=== PATIENT | female | born 1950 | race Caucasian/White ===

== ENCOUNTER 2018-05-17 08:30 | Observation (INO) | payer MEDICARE, BC ==
[~2018-05-17] VITALS: Ht 154.9 cm; Wt 53.2 kg
--- NOTE | 2018-05-17 09:29 | NUR ---
PT. IS A & O X 4 WITH C/O CHEST PAIN AND A STRONG COUGH. CRACKLES NOTED IN THE BASES. PT. HAS HAD AN AZ IN THE LAST 3 WEEKS. PT.'S 12 LEAD EKG WAS DONE. IV ACCESS ESTABLISHED WITH LABS DRAWN AND SENT. PT.'S PCXR IS DONE. PT. HAS THE CP MONITOR IN PLACE. PT.'S HOB IS ELEVATED GREATER THAN 30 DEGREES. PT. HAS THE CALL LIGHT IN PLACE AND THE SIDERAILS ARE UP X 2. PT. REMAINS PINK,WARM AND DRY WITH BRISK CAP REFILL, LESS THAN 3 SECONDS. PT. HAS NO C/O SOB OR NAUSEA. RESP ARE EUPNEIC WITH SATS 96% ON RA.
[2018-05-17] MEDS ORDERED: ASPIRIN 81 MG TABLET CHEW PO ONE (09:30)
[2018-05-17] MEDS ORDERED: SODIUM CHLORIDE FLUSH 10ML SYR IVF ONE (09:30)
[2018-05-17] MEDS ORDERED: ASPIRIN 81 MG TABLET CHEW ONE (09:34)
[2018-05-17] MEDS ORDERED: LISI2.5T PO (09:40)
[2018-05-17] MEDS ORDERED: TICA90TA PO (09:40)
[2018-05-17] MEDS ORDERED: ASPI-496 PO (09:40)
[2018-05-17] MEDS ORDERED: ATOR40TA78 PO (09:40)
[2018-05-17] MEDS ORDERED: CARV3.1212 PO (09:40)
[2018-05-17 09:42] LABS: BASOPHILS # (AUTO) 0.02 x10^3/uL (0-0.1); BASOPHILS % (AUTO) 0 % (0-1); EOSINOPHILS # (AUTO) 0.08 x10^3/uL (0-0.4); EOSINOPHILS % (AUTO) 1 % (1-7); LYMPHOCYTES # (AUTO) 1.32 x10^3/uL (1-3.4); LYMPHOCYTES % (AUTO) 22 % (22-44); MD NO; MEAN CORPUSCULAR HEMOGLOBIN 30.7 pg (27.0-34.8); MEAN CORPUSCULAR HGB CONC 33.8 g/dL (32.4-35.8); MEAN CORPUSCULAR VOLUME 90.9 fL (80-100); MEAN PLATELET VOLUME 7.5 fL (7.4-10.4); MONOCYTES # (AUTO) 0.73 x10^3/uL (0.2-0.8); MONOCYTES % (AUTO) 12 % (2-9); NEUTROPHILS # (AUTO) 3.85 x10^3/uL (1.8-6.8); NEUTROPHILS % (AUTO) 64 % (42-75); PLATELET COUNT 393 x10^3/uL (130-400); RED BLOOD COUNT 5.03 x10^6/uL (3.82-5.3); RED CELL DISTRIBUTION WIDTH 12.2 % (9.6-15.2)
[2018-05-17 09:46] LABS: INTERNATIONAL NORMALIZED RATIO 0.98 (0.93-1.1); PROTHROMBIN TIME 10.3 Seconds (9.6-11.5)
[2018-05-17 09:49] LABS: ALBUMIN 3.8 g/dL (3.4-5.0); ANION GAP 6 mmol/L (5-15); CALCIUM 9.3 mg/dL (8.5-10.1); CHLORIDE 111 mmol/L (98-107); CREATININE 0.71 mg/dL (0.55-1.02)
[2018-05-17 09:52] LABS: TROPONIN I < 0.015 ng/mL (0.000-0.045)
--- NOTE | 2018-05-17 09:53 | NUR ---
PT REPORT FROM MYLES PAREKH. PT CARE TO BE ASSUMED.
[2018-05-17] MEDS ORDERED: SODIUM CHLORIDE 0.9% 1,000 ML IV SCH (11:54)
[2018-05-17] MEDS ORDERED: NITROGLYCERIN 0.4 MG BOTTLE (25 TABS) SL PRN (12:00)
[2018-05-17] MEDS ORDERED: BISACODYL 10 MG SUPP PR PRN (12:00)
[2018-05-17] MEDS ORDERED: ACETAMINOPHEN 325 MG TABLET PO PRN (12:00)
[2018-05-17] MEDS ORDERED: DOCUSATE 100 MG CAPSULE PO PRN (12:00)
[2018-05-17] MEDS ORDERED: ENALAPRILAT 1.25 MG/ML, 2ML IVPush PRN (12:00)
[2018-05-17] MEDS ORDERED: GUAIFENESIN/DM 200-20MG, 10ML UDC PO PRN (12:00)
[2018-05-17] MEDS ORDERED: LIDODERM 5% PATCH TD PRN (12:00)
[2018-05-17] MEDS ORDERED: ONDANSETRON 2MG/ML, 2ML IVPush PRN (12:00)
[2018-05-17] MEDS ORDERED: POLYETHYLENE GLYCOL 17 GM PACKET PO PRN (12:00)
[2018-05-17] MEDS ORDERED: ONDANSETRON ODT 4 MG PO PRN (12:00)
--- NOTE | 2018-05-17 12:17 | NUR ---
PT REPORT TO MYLES NOLASCO FOR ROOM [id number]
[2018-05-17 13:05] LABS: TROPONIN I < 0.015 ng/mL (0.000-0.045)
[2018-05-17 13:11] VITALS: BP 102/63
[2018-05-17 13:27] VITALS: BP 102/63
[2018-05-17] MEDS: FAMOTIDINE 20 MG TABLET PO SCH ×2 (15:34→21:54)
[2018-05-17] MEDS: TICAGRELOR 90 MG TABLET PO SCH ×2 (15:34→21:54)
[2018-05-17 16:01] LABS: TROPONIN I < 0.015 ng/mL (0.000-0.045)
[2018-05-17 16:14] LABS: MICROSCOPIC AUTO
[2018-05-17 16:15] LABS: CULTURE INDICATED? YES
[2018-05-17 19:06] VITALS: BP 101/65
[2018-05-17] MEDS ORDERED: ATORVASTATIN 40 MG TABLET PO SCH (21:00)
[2018-05-18 00:33] VITALS: BP 128/65
[2018-05-18] MEDS ORDERED: ASPIRIN 81 MG TABLET EC PO SCH (06:00)
[2018-05-18 06:24] LABS: BASOPHILS # (AUTO) 0.02 x10^3/uL (0-0.1); BASOPHILS % (AUTO) 0 % (0-1); EOSINOPHILS # (AUTO) 0.07 x10^3/uL (0-0.4); EOSINOPHILS % (AUTO) 1 % (1-7); LYMPHOCYTES # (AUTO) 1.01 x10^3/uL (1-3.4); LYMPHOCYTES % (AUTO) 20 % (22-44); MD NO; MEAN CORPUSCULAR HEMOGLOBIN 31.2 pg (27.0-34.8); MEAN CORPUSCULAR HGB CONC 34.6 g/dL (32.4-35.8); MEAN CORPUSCULAR VOLUME 90.1 fL (80-100); MEAN PLATELET VOLUME 7.3 fL (7.4-10.4); MONOCYTES # (AUTO) 0.65 x10^3/uL (0.2-0.8); MONOCYTES % (AUTO) 13 % (2-9); NEUTROPHILS # (AUTO) 3.33 x10^3/uL (1.8-6.8); NEUTROPHILS % (AUTO) 66 % (42-75); PLATELET COUNT 323 x10^3/uL (130-400); RED BLOOD COUNT 4.68 x10^6/uL (3.82-5.3); RED CELL DISTRIBUTION WIDTH 12.7 % (9.6-15.2)
[2018-05-18 06:36] LABS: ANION GAP 4 mmol/L (5-15); CALCIUM 8.8 mg/dL (8.5-10.1); CHLORIDE 116 mmol/L (98-107); CREATININE 0.73 mg/dL (0.55-1.02)
[2018-05-18 07:14] VITALS: BP 119/64
[2018-05-18] MEDS: FAMOTIDINE 20 MG TABLET PO SCH (09:04)
[2018-05-18] MEDS: TICAGRELOR 90 MG TABLET PO SCH (09:04)
[2018-05-18] MEDS ORDERED: REGADENOSON 0.4 MG/5 ML SYRINGE ONE (10:03)
[2018-05-18 13:49] VITALS: BP 103/64
[2018-05-18] MEDS ORDERED: ONDA4TAB13 PO (14:11)
== END 2018-05-18 16:25 | disposition home or self-care (01) ==
LOC: ED 09:38 → INTOOBSV 10:51 → EDIP 10:51 → 5SO 13:03 → DCLOUNGE 05-18 16:16
PROVIDERS: ADMIT Internal Medicine; ATTEND Internal Medicine
DX: R07.89 Other chest pain (principal); R42 Dizziness and giddiness; R11.2 Nausea with vomiting, unspecified; E86.0 Dehydration; H91.91 Unspecified hearing loss, right ear; I10 Essential (primary) hypertension; I25.10 Atherosclerotic heart disease of native coronary artery without angina pectoris; I25.2 Old myocardial infarction; Z87.891 Personal history of nicotine dependence; Z95.5 Presence of coronary angioplasty implant and graft; Z79.899 Other long term (current) drug therapy
CPT/HCPCS: 36415; 71045; 78452; 80048; 81001; 82040; 83605; 83735; 83880; 84145; 84443; 84484; 85025; 85610; 87040; 87086; 93005; 93017; 93306; 96361; 96374; 99284; A9502; C9898; G0378; J2405; J2785; J7030

== ENCOUNTER 2020-02-11 23:39 | Emergency (ER) | payer BC, MEDICARE ==
[~2020-02-11] VITALS: Ht 154.9 cm; Wt 65.0 kg
[~2020-02-11 23:39] MED LIST: ASPI-496 PO; ATOR40TA78 PO; CARV3.1212 PO; LISI2.5T PO; ONDA4TAB13 PO; TICA90TA PO
--- NOTE | 2020-02-11 23:54 | NUR ---
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
--- NOTE | 2020-02-12 00:10 | NUR ---
ASSUMED CARE OF PT AT THIS TIME FROM [facility]. SPOUSE AT BEDSIDE. DR. KEARNS AT BEDSIDE FOR EVALUATION. 70 Y/O F PRESENT STATING "SINCE ABOUT 9:15PM LAST NIGHT MY LEFT ARM RIGHT HERE (POINTS TO BICEP) HAS BEEN HURTING AND BURNING PAIN, PAIN GOES UP TO SHOULDER SOMETIMES AND DOWN TO FINGERS, FEELS HEAVY, I ALWAYS FEEL LIKE I HAVE A HARD TIME TAKING DEEP BREATHS BUT I DON'T FEEL SHORT OF BREATH." PT TENDER TO PALP ALONG SHOULDER AND UPPER ARM, PAIN REPRODUCABLE TO PALP. DENIES CP, NUMBNESS, TINGLING, DIZZINESS, TA, ANY N/V/D AND ANY INJURY OR TRAUMA TO ARM. PT SPEECH CLEAR, NEURO AND CMS INTACT. SLIGHT LUE WEAKNESS DUE TO PAIN PER PT. RUE, RLE, LLE, EQUAL AND STRONG. CONT PULSE OX, BP, CARDIAC MONITORS IN PLACE. SR ON MONITOR. VSS. CALL LIGHT IN REACH. FALL PRECAUTIONS IN PLACE. A&OX4.
--- NOTE | 2020-02-12 00:29 | NUR ---
IV PLACED, LABS DRAWN. TO MEDICATE PT PER MD ORDER FOR 6/10 LEFT ARM PAIN. SPOUSE AT BEDSIDE. CALL LIGHT IN REACH. FALL PRECAUTIONS IN PLACE. VSS. SR ON MONITOR.
[2020-02-12] MEDS ORDERED: ACETAMINOPHEN 500 MG TABLET PO ONE (00:30)
[2020-02-12] MEDS ORDERED: SODIUM CHLORIDE FLUSH 10ML SYR IVF ONE (00:30)
[2020-02-12] MEDS ORDERED: ASPIRIN 81 MG TABLET CHEW PO ONE (00:30)
[2020-02-12] MEDS ORDERED: ACETAMINOPHEN 325 MG TABLET ONE (00:33)
[2020-02-12] MEDS ORDERED: ASPIRIN 81 MG TABLET CHEW ONE (00:34)
[2020-02-12 00:47] LABS: BASOPHILS % (AUTO) 0 % (0-1); EOSINOPHILS % (AUTO) 3 % (1-7); LYMPHOCYTES % (AUTO) 31 % (22-44); MEAN CORPUSCULAR HEMOGLOBIN 30.4 pg (27.0-34.8); MEAN CORPUSCULAR HGB CONC 34.3 g/dL (32.4-35.8); MEAN PLATELET VOLUME 7.6 fL (7.4-10.4); MONOCYTES % (AUTO) 13 % (2-9); NEUTROPHILS % (AUTO) 54 % (42-75); PLATELET COUNT 264 x10^3/uL (130-400); RED CELL DISTRIBUTION WIDTH 12.8 % (9.6-15.2)
[2020-02-12 00:48] LABS: MD NO
[2020-02-12] MEDS ORDERED: CHOL10003 PO (00:52)
--- NOTE | 2020-02-12 00:52 | NUR ---
RAD AT BEDSIDE
[2020-02-12 00:56] LABS: ALBUMIN 3.6 g/dL (3.4-5.0); ANION GAP 7 mmol/L (5-15); CALCIUM 8.8 mg/dL (8.5-10.1); CHLORIDE 111 mmol/L (98-107)
[2020-02-12 01:02] LABS: ALANINE AMINOTRANSFERASE 34 U/L (12-78); ALKALINE PHOSPHATASE 127 U/L (45-117); BILIRUBIN,TOTAL 0.4 mg/dL (0.2-1.0); CREATININE 0.78 mg/dL (0.55-1.02); TOTAL PROTEIN 7.5 g/dL (6.4-8.2); TROPONIN I < 0.015 ng/mL (0.000-0.045)
--- NOTE | 2020-02-12 01:13 | NUR ---
BEDSIDE REPORT AND TRANSFER OF CARE TO TONG BUENO AT THIS TIME.
[2020-02-12 01:15] VITALS: BP 138/88
--- NOTE | 2020-02-12 01:20 | NUR ---
received pt report. pt cooperative in bed, no distress. piv to right arm intact and flushes well.
--- NOTE | 2020-02-12 02:01 | NUR ---
d/c instructions given to pt and . piv to right arm removed. catheter intact, and pt tolerated well. bandage placed.
== END 2020-02-12 02:05 | disposition home or self-care (01) ==
LOC: ED 02-12 01:17
DX: M25.512 Pain in left shoulder (principal); M79.622 Pain in left upper arm; R06.02 Shortness of breath; R42 Dizziness and giddiness; I10 Essential (primary) hypertension
CPT/HCPCS: 36415; 71045; 80053; 84484; 85025; 93005; 99285

== ENCOUNTER 2020-03-26 14:18 | Inpatient (IN) | payer BC ==
[~2020-03-26] VITALS: Ht 154.9 cm; Wt 68.0 kg
[~2020-03-26 14:18] MED LIST changes: +CHOL10003 PO
--- NOTE | 2020-03-26 14:20 | NUR ---
Pt changed into gown and placed on bedside monitor. 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
--- NOTE | 2020-03-26 15:01 | NUR ---
Pt still awaiting MD assessment. Report given to MYLES Shah and care transferred.
--- NOTE | 2020-03-26 15:09 | NUR ---
Report from MYLES Guadalupe. [facility].
[2020-03-26] MEDS ORDERED: ONDANSETRON 2MG/ML, 2ML ONE (15:47)
[2020-03-26] MEDS ORDERED: SODIUM CHLORIDE 0.9% 1,000ML IVBOLUS ONE (16:00)
[2020-03-26] MEDS ORDERED: SODIUM CHLORIDE FLUSH 10ML SYR IVF ONE (16:00)
[2020-03-26] MEDS ORDERED: ONDANSETRON 2MG/ML, 2ML IVPush ONE (16:00)
[2020-03-26 16:02] LABS: BASOPHILS % (AUTO) 0 % (0-1); EOSINOPHILS % (AUTO) 0 % (1-7); LYMPHOCYTES % (AUTO) 8 % (22-44); MEAN CORPUSCULAR HEMOGLOBIN 30.7 pg (27.0-34.8); MEAN CORPUSCULAR HGB CONC 34.3 g/dL (32.4-35.8); MEAN PLATELET VOLUME 7.6 fL (7.4-10.4); MONOCYTES % (AUTO) 5 % (2-9); NEUTROPHILS % (AUTO) 87 % (42-75); PLATELET COUNT 244 x10^3/uL (130-400); RED BLOOD COUNT 4.78 x10^6/uL (3.82-5.3)
[2020-03-26 16:06] LABS: MD NO
--- NOTE | 2020-03-26 16:07 | NUR ---
Pt up to bedside commode.
[2020-03-26 16:13] LABS: ALANINE AMINOTRANSFERASE 38 U/L (12-78); ALBUMIN 3.5 g/dL (3.4-5.0); ANION GAP 5 mmol/L (5-15); CHLORIDE 109 mmol/L (98-107); CREATININE 0.84 mg/dL (0.55-1.02)
[2020-03-26 16:18] LABS: ALKALINE PHOSPHATASE 100 U/L (45-117); BILIRUBIN,TOTAL 0.3 mg/dL (0.2-1.0); TOTAL PROTEIN 7.7 g/dL (6.4-8.2); TROPONIN I < 0.015 ng/mL (0.000-0.045)
--- NOTE | 2020-03-26 16:20 | NUR ---
20 g IV started left AC.
--- NOTE | 2020-03-26 16:24 | NUR ---
RN at bedside. No working computer in room, unable to scan in zofran and NS. NS infusing, zofran given.
--- NOTE | 2020-03-26 16:44 | NUR ---
RN at bedside. NS infusing. Pt shaking, appears very anxious. This RN comforting pt and updating her on the plan.
[2020-03-26] MEDS ORDERED: IBUPROFEN 800 MG TABLET ONE (16:49)
[2020-03-26] MEDS ORDERED: IBUPROFEN 800 MG TABLET PO ONE (17:00)
--- NOTE | 2020-03-26 17:11 | NUR ---
Road tested pt.- 89% RA. Pt shaking, appears anxious, reports she is shaking because she feels cold. Pt reports feeling lightheaded walking around. Helped pt back into bed and provided warm blanket. Last temp was 98.2
--- NOTE | 2020-03-26 17:51 | NUR ---
RN at bedside. Updating pt on plan to admit pt. Pt sitting in bed, reports she feels less anxious now. Reports her pain is now 3/10 and "that ibuprofen really helped so much I feel so relaxed and comfortable now".
[2020-03-26] MEDS ORDERED: SODIUM CHLORIDE FLUSH 10ML SYR IVF PRN (18:30)
--- NOTE | 2020-03-26 18:44 | NUR ---
Provided pt water. Flushed IV with NS.
--- NOTE | 2020-03-26 18:46 | NUR ---
Ordered cardiac diet dinner tray for pt.
--- NOTE | 2020-03-26 19:11 | NUR ---
Delivered dinner tray to pt. Pt sitting up in bed, breathing nonlabored, relaxed.
[2020-03-26] MEDS ORDERED: DEXA1.5T28 PO (19:28)
--- NOTE | 2020-03-26 19:57 | NUR ---
Attempted to call report, no one received report.
--- NOTE | 2020-03-26 20:14 | NUR ---
Report called to room [id number]
[2020-03-26] MEDS ORDERED: POLYETHYLENE GLYCOL 17 GM PACKET PO PRN (20:30)
[2020-03-26] MEDS ORDERED: ONDANSETRON 2MG/ML, 2ML IVPush PRN (20:30)
[2020-03-26] MEDS ORDERED: PROMETHAZINE 25 MG/ML, 1ML IM PRN (20:30)
[2020-03-26] MEDS ORDERED: DOCUSATE 100 MG CAPSULE PO PRN (20:30)
[2020-03-26] MEDS ORDERED: hydrALAzine 20 MG/ML, 1ML IVPush PRN (20:30)
[2020-03-26] MEDS ORDERED: morphine SULFATE 10 MG/ML, 1ML IVPush PRN (20:30)
[2020-03-26] MEDS ORDERED: ONDANSETRON ODT 4 MG PO PRN (20:30)
[2020-03-26] MEDS ORDERED: BISACODYL 10 MG SUPP PR PRN (20:30)
[2020-03-26] MEDS: DEXAMETHASONE 4 MG/ML, 1ML IVPush SCH (21:53)
[2020-03-26] MEDS: ENOXAPARIN 40 MG/0.4 ML SQ SCH (21:53)
[2020-03-26] MEDS: SODIUM CHLORIDE 0.9% 1,000 ML IV SCH (21:54)
[2020-03-26] MEDS: ASCORBIC ACID 500 MG TABLET PO SCH (21:54)
[2020-03-26] MEDS: ATORVASTATIN 40 MG TABLET PO SCH (21:54)
[2020-03-26 22:27] VITALS: BP 115/74
[2020-03-27 01:23] VITALS: BP 118/70
[2020-03-27] MEDS: ACETAMINOPHEN 325 MG TABLET PO PRN ×2 (02:41→14:52)
[2020-03-27 07:05] LABS: BASOPHILS % (AUTO) 0 % (0-1); EOSINOPHILS % (AUTO) 0 % (1-7); LYMPHOCYTES % (AUTO) 9 % (22-44); MEAN CORPUSCULAR HEMOGLOBIN 30.7 pg (27.0-34.8); MEAN CORPUSCULAR HGB CONC 33.9 g/dL (32.4-35.8); MEAN PLATELET VOLUME 8.1 fL (7.4-10.4); MONOCYTES % (AUTO) 5 % (2-9); NEUTROPHILS % (AUTO) 86 % (42-75); PLATELET COUNT 209 x10^3/uL (130-400); RED CELL DISTRIBUTION WIDTH 13.2 % (9.6-15.2)
[2020-03-27 07:13] LABS: MD NO
[2020-03-27 07:17] LABS: ALBUMIN 2.8 g/dL (3.4-5.0); ANION GAP 5 mmol/L (5-15); CALCIUM 8.4 mg/dL (8.5-10.1); CHLORIDE 116 mmol/L (98-107)
[2020-03-27 07:28] LABS: ALANINE AMINOTRANSFERASE 29 U/L (12-78); ALKALINE PHOSPHATASE 84 U/L (45-117); BILIRUBIN,TOTAL 0.2 mg/dL (0.2-1.0); CHOL/HDL RATIO 2.7; CHOLESTEROL, TOTAL 123 mg/dL (140-239); CREATININE 0.67 mg/dL (0.55-1.02); HDL CHOL % 37 % (28-40); HDL CHOLESTEROL (DIRECT) 46 mg/dL (40-60); LDL CHOLESTEROL,CALCULATED 47 mg/dL (54-169); TOTAL PROTEIN 6.3 g/dL (6.4-8.2); TRIGLYCERIDES 149 mg/dL (50-200); VLDL CHOLESTEROL 30 mg/dL (0-25)
[2020-03-27 07:48] VITALS: BP 113/66
[2020-03-27] MEDS: CHOLECALCIFEROL 5,000u TAB PO SCH (08:16)
[2020-03-27] MEDS: ASCORBIC ACID 500 MG TABLET PO SCH ×2 (08:16→17:33)
[2020-03-27] MEDS: ASPIRIN 81 MG TABLET EC PO SCH (08:16)
[2020-03-27] MEDS: ZINC SULFATE 220 MG CAPSULE PO SCH (08:16)
[2020-03-27] MEDS: DEXAMETHASONE 4 MG/ML, 1ML IVPush SCH (08:16)
[2020-03-27] MEDS: SODIUM CHLORIDE 0.9% 1,000 ML IV SCH (08:17)
[2020-03-27] MEDS: ENOXAPARIN 40 MG/0.4 ML SQ SCH ×2 (08:17→20:47)
[2020-03-27] MEDS: OXYcodone IR 5MG TABLET PO PRN ×2 (08:28→23:13)
[2020-03-27 08:29] LABS: C-REACTIVE PROTEIN, QUANT 0.69 mg/dL (0.02-0.49)
[2020-03-27 08:32] LABS: TROPONIN I < 0.015 ng/mL (0.000-0.045)
[2020-03-27 12:35] VITALS: BP 111/71
[2020-03-27] MEDS: VALACYCLOVIR 500MG TABLET PO SCH (18:17)
[2020-03-27 19:18] VITALS: BP 115/65
[2020-03-27] MEDS: ATORVASTATIN 40 MG TABLET PO SCH (20:47)
[2020-03-27 23:26] VITALS: BP 125/70
[2020-03-28] VITALS (7 sets, daily range): BP systolic 102–137; BP diastolic 62–79
[2020-03-28] MEDS: VALACYCLOVIR 500MG TABLET PO SCH ×3 (02:22→18:48)
[2020-03-28] MEDS: ASPIRIN 81 MG TABLET EC PO SCH (09:14)
[2020-03-28] MEDS: CHOLECALCIFEROL 5,000u TAB PO SCH (09:15)
[2020-03-28] MEDS: DEXAMETHASONE 4 MG/ML, 1ML IVPush SCH (09:15)
[2020-03-28] MEDS: ASCORBIC ACID 500 MG TABLET PO SCH ×2 (09:15→17:46)
[2020-03-28] MEDS: ZINC SULFATE 220 MG CAPSULE PO SCH (09:15)
[2020-03-28] MEDS: ENOXAPARIN 40 MG/0.4 ML SQ SCH ×2 (09:15→20:18)
[2020-03-28] MEDS: OXYcodone IR 5MG TABLET PO PRN ×2 (09:25→23:49)
[2020-03-28] MEDS ORDERED: REMDESIVIR 200 MG in SODIUM CHLORIDE 0.9% 250 ML IVPB ONE (15:00)
[2020-03-28] MEDS: ATORVASTATIN 40 MG TABLET PO SCH (20:17)
[2020-03-29] VITALS: BP 163/77
[2020-03-29 00:29] VITALS: BP 151/72
[2020-03-29] MEDS ORDERED: NITROGLYCERIN 0.4 MG BOTTLE (25 TABS) SL ONE ×2 (00:30)
[2020-03-29] MEDS ORDERED: ASPIRIN 81 MG TABLET CHEW PO ONE (00:30)
[2020-03-29 00:50] LABS: TROPONIN I < 0.015 ng/mL (0.000-0.045)
[2020-03-29 00:55] VITALS: BP 117/57
[2020-03-29] MEDS: VALACYCLOVIR 500MG TABLET PO SCH ×3 (01:31→17:43)
[2020-03-29] MEDS: ACETAMINOPHEN 325 MG TABLET PO PRN (01:37)
[2020-03-29 06:30] LABS: BASOPHILS % (AUTO) 0 % (0-1); EOSINOPHILS % (AUTO) 0 % (1-7); LYMPHOCYTES % (AUTO) 7 % (22-44); MONOCYTES % (AUTO) 9 % (2-9); NEUTROPHILS % (AUTO) 84 % (42-75); PLATELET COUNT 214 x10^3/uL (130-400); RED BLOOD COUNT 4.36 x10^6/uL (3.82-5.3); RED CELL DISTRIBUTION WIDTH 13.1 % (9.6-15.2)
[2020-03-29 06:34] LABS: MD NO
[2020-03-29 06:36] LABS: ALBUMIN 2.6 g/dL (3.4-5.0); ANION GAP 5 mmol/L (5-15); CALCIUM 8.6 mg/dL (8.5-10.1); CHLORIDE 108 mmol/L (98-107)
[2020-03-29 06:43] LABS: ALANINE AMINOTRANSFERASE 34 U/L (12-78); ALKALINE PHOSPHATASE 77 U/L (45-117); BILIRUBIN,TOTAL 0.4 mg/dL (0.2-1.0); CREATININE 0.63 mg/dL (0.55-1.02); TOTAL PROTEIN 6.7 g/dL (6.4-8.2); TROPONIN I < 0.015 ng/mL (0.000-0.045)
[2020-03-29 07:32] VITALS: BP 137/78
[2020-03-29] MEDS: CHOLECALCIFEROL 5,000u TAB PO SCH (08:57)
[2020-03-29] MEDS: ASCORBIC ACID 500 MG TABLET PO SCH ×2 (08:57→17:43)
[2020-03-29] MEDS: ASPIRIN 81 MG TABLET EC PO SCH (08:57)
[2020-03-29] MEDS: ZINC SULFATE 220 MG CAPSULE PO SCH (08:57)
[2020-03-29] MEDS: DEXAMETHASONE 4 MG/ML, 1ML IVPush SCH (08:57)
[2020-03-29] MEDS: ENOXAPARIN 40 MG/0.4 ML SQ SCH ×2 (09:00→21:19)
[2020-03-29] MEDS ORDERED: OMNIPAQUE 350 MG/ML, 100ML BOTTLE ONE (09:24)
[2020-03-29] MEDS: OXYcodone IR 5MG TABLET PO PRN (09:39)
[2020-03-29 12:17] LABS: TROPONIN I < 0.015 ng/mL (0.000-0.045)
[2020-03-29] MEDS ORDERED: FUROSEMIDE 40 MG/4 ML IV ONE (12:30)
[2020-03-29 13:12] VITALS: BP 115/71
[2020-03-29] MEDS: REMDESIVIR 100 MG in SODIUM CHLORIDE 0.9% 250 ML IVPB SCH (15:44)
[2020-03-29 19:42] VITALS: BP 106/65
[2020-03-29] MEDS: ATORVASTATIN 40 MG TABLET PO SCH (21:19)
[2020-03-29] MEDS: GUAIFENESIN ER 600 MG TABLET PO SCH (21:19)
[2020-03-30 00:26] VITALS: BP 112/67
[2020-03-30] MEDS: VALACYCLOVIR 500MG TABLET PO SCH ×3 (02:06→17:16)
[2020-03-30 06:07] LABS: ALBUMIN 2.6 g/dL (3.4-5.0); ANION GAP 5 mmol/L (5-15); CALCIUM 9.1 mg/dL (8.5-10.1); CHLORIDE 107 mmol/L (98-107)
[2020-03-30 06:15] LABS: ALANINE AMINOTRANSFERASE 40 U/L (12-78); ALKALINE PHOSPHATASE 98 U/L (45-117); BILIRUBIN,TOTAL 0.3 mg/dL (0.2-1.0); CREATININE 0.63 mg/dL (0.55-1.02); TOTAL PROTEIN 6.8 g/dL (6.4-8.2)
[2020-03-30 07:12] VITALS: BP 122/69
[2020-03-30] MEDS: ASPIRIN 81 MG TABLET EC PO SCH (08:58)
[2020-03-30] MEDS: DEXAMETHASONE 4 MG/ML, 1ML IVPush SCH (08:58)
[2020-03-30] MEDS: GUAIFENESIN ER 600 MG TABLET PO SCH ×2 (08:58→21:51)
[2020-03-30] MEDS: CHOLECALCIFEROL 5,000u TAB PO SCH (08:59)
[2020-03-30] MEDS: ASCORBIC ACID 500 MG TABLET PO SCH ×2 (08:59→17:16)
[2020-03-30] MEDS: ENOXAPARIN 40 MG/0.4 ML SQ SCH ×2 (09:00→21:51)
[2020-03-30] MEDS: ZINC SULFATE 220 MG CAPSULE PO SCH (09:43)
[2020-03-30 12:23] VITALS: BP 119/71
[2020-03-30] MEDS: REMDESIVIR 100 MG in SODIUM CHLORIDE 0.9% 250 ML IVPB SCH (16:22)
[2020-03-30 19:33] VITALS: BP 116/76
[2020-03-30] MEDS: ATORVASTATIN 40 MG TABLET PO SCH (21:51)
[2020-03-31 01:03] VITALS: BP 135/75
[2020-03-31] MEDS: VALACYCLOVIR 500MG TABLET PO SCH ×3 (02:04→17:10)
[2020-03-31 06:23] LABS: ALBUMIN 2.5 g/dL (3.4-5.0); ANION GAP 5 mmol/L (5-15); CALCIUM 9.1 mg/dL (8.5-10.1); CHLORIDE 110 mmol/L (98-107)
[2020-03-31 06:29] LABS: ALANINE AMINOTRANSFERASE 39 U/L (12-78); ALKALINE PHOSPHATASE 83 U/L (45-117); BILIRUBIN,TOTAL 0.4 mg/dL (0.2-1.0); CREATININE 0.59 mg/dL (0.55-1.02); TOTAL PROTEIN 6.2 g/dL (6.4-8.2)
[2020-03-31 06:59] VITALS: BP 138/72
[2020-03-31] MEDS: DEXAMETHASONE 4 MG/ML, 1ML IVPush SCH (08:47)
[2020-03-31] MEDS: CHOLECALCIFEROL 5,000u TAB PO SCH (08:47)
[2020-03-31] MEDS: ASPIRIN 81 MG TABLET EC PO SCH (08:47)
[2020-03-31] MEDS: GUAIFENESIN ER 600 MG TABLET PO SCH ×2 (08:48→21:36)
[2020-03-31] MEDS: ASCORBIC ACID 500 MG TABLET PO SCH ×2 (08:48→17:10)
[2020-03-31] MEDS: ZINC SULFATE 220 MG CAPSULE PO SCH (08:48)
[2020-03-31] MEDS: ENOXAPARIN 40 MG/0.4 ML SQ SCH ×2 (08:49→21:36)
[2020-03-31] MEDS ORDERED: POTASSIUM CHLORIDE 20 MEQ TAB.ER.PRT PO ONE (11:00)
[2020-03-31] MEDS ORDERED: FUROSEMIDE 40 MG/4 ML IV ONE (11:00)
[2020-03-31 12:37] VITALS: BP 122/76
[2020-03-31] MEDS: REMDESIVIR 100 MG in SODIUM CHLORIDE 0.9% 250 ML IVPB SCH (15:42)
[2020-03-31 20:36] VITALS: BP 122/75
[2020-03-31] MEDS: ATORVASTATIN 40 MG TABLET PO SCH (21:36)
[2020-04-01 01:19] VITALS: BP 137/82
[2020-04-01] MEDS: VALACYCLOVIR 500MG TABLET PO SCH ×3 (01:21→17:04)
[2020-04-01 06:21] LABS: ALBUMIN 2.6 g/dL (3.4-5.0); ANION GAP 5 mmol/L (5-15); CHLORIDE 109 mmol/L (98-107)
[2020-04-01 06:32] LABS: ALANINE AMINOTRANSFERASE 44 U/L (12-78); ALKALINE PHOSPHATASE 81 U/L (45-117); BILIRUBIN,TOTAL 0.4 mg/dL (0.2-1.0); CREATININE 0.63 mg/dL (0.55-1.02); TOTAL PROTEIN 6.5 g/dL (6.4-8.2)
[2020-04-01 07:07] VITALS: BP 132/78
[2020-04-01] MEDS: ASPIRIN 81 MG TABLET EC PO SCH (09:40)
[2020-04-01] MEDS: GUAIFENESIN ER 600 MG TABLET PO SCH ×2 (09:40→20:50)
[2020-04-01] MEDS: CHOLECALCIFEROL 5,000u TAB PO SCH (09:41)
[2020-04-01] MEDS: DEXAMETHASONE 4 MG/ML, 1ML IVPush SCH (09:41)
[2020-04-01] MEDS: ZINC SULFATE 220 MG CAPSULE PO SCH (09:41)
[2020-04-01] MEDS: ASCORBIC ACID 500 MG TABLET PO SCH ×2 (09:41→17:05)
[2020-04-01] MEDS: ENOXAPARIN 40 MG/0.4 ML SQ SCH ×2 (09:42→20:51)
[2020-04-01 12:17] VITALS: BP 127/76
[2020-04-01] MEDS: REMDESIVIR 100 MG in SODIUM CHLORIDE 0.9% 250 ML IVPB SCH (15:19)
[2020-04-01 19:40] VITALS: BP 124/76
[2020-04-01] MEDS: ATORVASTATIN 40 MG TABLET PO SCH (20:50)
[2020-04-02] MEDS: VALACYCLOVIR 500MG TABLET PO SCH ×2 (00:59→09:45)
[2020-04-02 01:00] VITALS: BP 134/68
[2020-04-02] MEDS: ASCORBIC ACID 500 MG TABLET PO SCH (08:00)
[2020-04-02] MEDS ORDERED: DEXA4TAB66 PO (09:20)
[2020-04-02] MEDS ORDERED: ASCORBIC ACID 250 MG TAB ONE (09:35)
[2020-04-02] MEDS: ASPIRIN 81 MG TABLET EC PO SCH (09:45)
[2020-04-02] MEDS: ZINC SULFATE 220 MG CAPSULE PO SCH (09:45)
[2020-04-02] MEDS: GUAIFENESIN ER 600 MG TABLET PO SCH (09:46)
[2020-04-02] MEDS: ENOXAPARIN 40 MG/0.4 ML SQ SCH (09:46)
[2020-04-02] MEDS: DEXAMETHASONE 4 MG/ML, 1ML IVPush SCH (09:46)
[2020-04-02] MEDS: CHOLECALCIFEROL 5,000u TAB PO SCH (09:46)
[2020-04-02 09:59] VITALS: BP 145/77
[2020-04-02 14:44] VITALS: BP 119/72
== END 2020-04-02 17:25 | disposition home or self-care (01) | DRG 177 ==
LOC: ED 15:03 → EDIP 18:16 → 4EST 21:02
PROVIDERS: ADMIT Internal Medicine; ATTEND Hospitalist
PROC: XW033E5 Introduction of Remdesivir Anti-infective into Peripheral Vein, Percutaneous Approach, New Technology Group 5 (ICD-10-PCS; principal; 2020-03-28)
PROC: XW13325 Transfusion of Convalescent Plasma (Nonautologous) into Peripheral Vein, Percutaneous Approach, New Technology Group 5 (ICD-10-PCS; 2020-03-29)
DX: U07.1 COVID-19 (principal); J12.82 Pneumonia due to coronavirus disease 2019; J96.01 Acute respiratory failure with hypoxia; E78.5 Hyperlipidemia, unspecified; G47.33 Obstructive sleep apnea (adult) (pediatric); H91.91 Unspecified hearing loss, right ear; I10 Essential (primary) hypertension; I25.10 Atherosclerotic heart disease of native coronary artery without angina pectoris; I25.2 Old myocardial infarction; N20.0 Calculus of kidney; Z95.5 Presence of coronary angioplasty implant and graft; R74.01 Elevation of levels of liver transaminase levels
CPT/HCPCS: 36415; 71045; 71250; 71275; 80053; 80061; 83036; 83615; 83735; 84145; 84443; 84484; 85025; 85379; 86140; 86850; 86900; 93005; 99285; G0378; J1100; J1650; J1940; J2405; Q9967; J7030; J7050; P9017

== ENCOUNTER → 2020-09-12 | Outpatient (CLI) | payer BC, MEDICARE ==
[~2020-09-12] MED LIST changes: +DEXA1.5T28 PO; +DEXA4TAB66 PO
== END | disposition home or self-care (01) ==
LOC: CFH 09:35
PROVIDERS: ATTEND Internal Medicine Cardiovascular Disease
DX: I08.8 Other rheumatic multiple valve diseases (principal); I25.2 Old myocardial infarction; E78.5 Hyperlipidemia, unspecified; I25.10 Atherosclerotic heart disease of native coronary artery without angina pectoris; Z86.16 Personal history of COVID-19; Z87.891 Personal history of nicotine dependence
CPT/HCPCS: 93306